=== PATIENT | female | born 1980 | race Caucasian/White ===

== ENCOUNTER 2022-01-25 10:11 | Outpatient (CLI) | payer OTHER, SELFPAY ==
--- NOTE | ~2022-01-25 | MM_ITS ---
EXAMINATION: MM screening simón BI w bradley HISTORY: Screening mammogram TECHNIQUE: Craniocaudal and mediolateral oblique 3-D tomosynthesis images were obtained and synthetic 2-D images were generated. CAD analysis was submitted and interpreted. COMPARISON: 02/11/2015 BREAST PARENCHYMAL COMPOSITION: There are scattered areas of fibroglandular density. FINDINGS: 4.7 x 7.9 mm circumscribed opacity in the posterior upper left breast on MLO view, likely a n axillary tail lymph node. There is no evidence of suspicious mass, calcification, or architectural distortion to suggest malignancy in either breast. There has been no suspicious interval change. IMPRESSION: 1. No mammographic evidence of malignancy. 2. Recommend routine screening mammography in one year. BI-RADS Category 2: Benign finding(s). Reviewed, dictated and finalized at location A.
== END 2022-01-25 10:12 | disposition home or self-care (01) ==
LOC: CHSIMG 10:17
PROVIDERS: PCP Physician Assistant; Visit Provider Physician Assistant
DX: Z12.31 Encounter for screening mammogram for malignant neoplasm of breast (principal)
CPT/HCPCS: 77063; 77067

== ENCOUNTER 2022-03-15 11:31 | Emergency (ER) | payer OTHER, SELFPAY ==
[2022-03-15] VITALS (20 sets, daily range): BP systolic 130–152; BP diastolic 72–116; PULSE 55–81; RESP 14–24; TEMP 36.7–36.9; O2SAT 98–100
--- NOTE | ~2022-03-15 | XR_ITS ---
EXAMINATION: XR chest 2V DATE: 03/15/2022 14:13 INDICATION: 3 days of intermittent chest pain TECHNIQUE: PA and lateral views of the chest were obtained. COMPARISON: Chest radiograph and CT dated 07/19/2009 FINDINGS: The lungs are clear with no focal airspace opacities, pulmonary edema, pleural effusion or pneumothor ax. The cardiomediastinal silhouette is normal. Visualized bones and soft tissues are unremarkable. IMPRESSION: 1. No acute cardiopulmonary disease. Reviewed, dictated and finalized at location A.
--- NOTE | 2022-03-15 11:38 | ECG_ITS ---
Measurements Intervals [place] Rate: 72 P: 65 ME: 150 QRS: 32 QRSD: 85 T: 13 QT: 373 QTc: 409 Interpretive Statements SINUS RHYTHM RSR' IN V1 OR V2, PROBABLY NORMAL VARIANT NONSPECIFIC ST & T-WAVE ABNORMALITY- ANTEROLAT/INF LEADS BORDERLINE ECG NO PREVIOUS ECG AVAILABLE FOR COMPARISON Electronically Signed On 03-15-2022 14:34:08 CDT by Jayson Shields D.O.
--- NOTE | 2022-03-15 13:40 | ED.GENADULT ---
HPI - General Adult General Chief complaint: Unspecified Stated complaint: chest pain, sob Time Seen by Provider: 03/15/22 13:40 Source: patient Mode of arrival: ambulatory Limitations: no limitations History of Present Illness HPI narrative: The patient is a 41-year-old female with a history of anxiety presenting to the emergency department for evaluation of chest pain. Patient states that she was initiated on Wellbutrin last week by her primary care physician to help with smoking cessation and anxiety. Patient states she thought she may be having an adverse reaction to the medication with significant amount of palpitations, chest pain, shortness of breath this morning. Patient reports feeling shaky. Patient denies any current chest pain or shortness of breath. 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 She did experience radiation to the left arm. No radiation to the back, jaw, neck. No associated diaphoresis, lightheadedness, dizziness, syncope. Patient denies cardiac history. She does smoke. She has never had a stress test. She reports recent long air travel to [place] last month. She denies history of coagulopathy. Related Data Home Medications Medication Instructions Recorded Confirmed bupropion HCl 300 mg 24 hr tablet, mg PO 03/15/22 extended release Allergies Allergy/AdvReac Type Severity Reaction Status Date / Time Sulfa (Sulfonamide Allergy Unknown N/V SEVERE Verified 03/15/22 13:36 Antibiotics) Review of Systems Review of Systems: CONSTITUTIONAL: Denies fever, chills, or sweats. CARDIOVASCULAR: Reports intermittent chest pain, resolved palpitations, denies edema RESPIRATORY: Denies cough, denies current shortness of breath GASTROINTESTINAL: Denies abdominal pain, nausea, vomiting, or diarrhea. GENITOURINARY: Denies dysuria or hematuria. SKIN: Denies rash or itching. MUSCULOSKELETAL: Denies back pain, joint pain, or myalgia. NEUROLOGIC: Denies headache, numbness, or weakness. [facility] Past Medical History Medical History (Updated 03/15/22 @ 18:24 by Sue Palomares MD) Anxiety Recurrent urinary tract infection Surgical History Surgical History (Updated 03/15/22 @ 14:27 by Sue Palomares MD) History of hysterectomy Tubal ligation status Social History Social History (Updated 03/15/22 @ 14:28 by Sue Palomares MD) Smoking status: Current every day smoker Alcohol intake: former Substance use: never Living arrangements: with family Gender identity (if verbalized by the patient): Female Exam Narrative: GENERAL: Awake, alert, conversant, mildly anxious appearing HEAD: Normocephalic, atraumatic. EYES: PERRLA and EOMI. ENT: Nares clear, no rhinorrhea or epistaxis. Mucous membranes moist. NECK: Supple. CHEST: No respiratory distress, breathing even and non labored, no chest wall tenderness HEART: Regular rate, sinus rhythm ABDOMEN:Non distended, non tender EXTREMITIES: Normal range of motion. No edema. No unilateral calf tenderness or erythema. SKIN: Warm, dry, no rash. NEURO:No focal deficits. Alert and oriented x3 Course Vital Signs Vital signs: Vital Signs Temperature 36.9 C 03/15/22 11:34 Pulse Rate 81 03/15/22 11:34 Respiratory Rate 16 03/15/22 11:34 Blood Pressure 140/87 03/15/22 11:34 Pulse Oximetry 100 03/15/22 11:34 Oxygen Delivery Room Air 03/15/22 11:34 Temperature 36.7 C 03/15/22 13:40 Pulse Rate 65 03/15/22 18:31 Respiratory Rate 15 03/15/22 18:31 Blood Pressure 141/97 H 03/15/22 18:31 Pulse Oximetry 100 03/15/22 18:31 Oxygen Delivery Room Air 03/15/22 11:34 Medical Decision Making MDM Narrative Medical decision making narrative: Patient's EKG and labs are without significant high risk changes. Cardiac risk factors reviewed. Patient is felt low risk for ACS and reasonable for further risk stratification testing as an outpati
[2022-03-15 14:15] LABS: Basophils Absolute Auto 0.1 K/mm3 (0.0-0.1); Basophils Percent Auto 0.7 % (0.2-1.2); Eosinophils Absolute Auto 0.2 K/mm3 (0-0.3); Eosinophils Percent Auto 2.1 % (0-4.4); Hematocrit 40.5 % (37.0-47.0); Hemoglobin 14.2 g/dL (12.0-15.0); Immature Granulocyte Absolute 0.02 K/mm3 (0.00-0.031); Immature Granulocyte Percent A 0.3 % (0-0.5); Lymphocytes Absolute Auto 2.24 K/mm3 (0.9-3.2); Lymphocytes Percent Auto 31.1 % (18.3-44.2); Mean Corpuscular HGB Conc 35.1 g/dl (32-36); Mean Corpuscular Hemoglobin 30.7 pg (26-34); Mean Corpuscular Volume 87.7 fl (80-100); Mean Platelet Volume 7.9 fl (7.4-10.4); Monocytes Absolute Auto 0.5 K/mm3 (0.1-0.6); Monocytes Percent Auto 6.8 % (2.6-8.5); Neutrophils Absolute Auto 4.3 K/mm3 (1.3-6.7); Platelet Count Result 315 k/mm3 (150-375); Red Blood Count 4.62 M/mm3 (4.2-5.4); Red Cell Distribution Width 13.2 % (11.5-14.5); White Blood Count 7.2 K/mm3 (4.5-10.0)
[2022-03-15 14:35] LABS: Alanine Aminotransferase 16 U/L (6-35); Albumin Level 4.5 g/dL (3.5-5.1); Alkaline Phosphatase 53 U/L (38-126); Anion Gap 10 mmol/L (8-16); Aspartate Amino Transferase 26 U/L (14-36); Bilirubin,Total 0.8 mg/dL (0.2-1.3); Blood Urea Nitrogen 9 mg/dL (7-17); Calcium 9.1 mg/dL (8.4-10.2); Carbon Dioxide 25 mmol/L (22-30); Chloride 103 mmol/L (98-107); Estimated CRCL calculation 73 ml/min; Estimated Glomerular Filt Rate > 60; Glucose 79 mg/dL (65-110); Lipase 60 U/L (23-300); Potassium 3.9 mmol/L (3.4-5.0); Sodium 138 mmol/L (137-145)
[2022-03-15 14:54] LABS: Troponin I < 0.012 ng/mL (0.000-0.034)
[2022-03-15] MEDS: LORazepam (*CRX) 0.5 MG TABLET PO (16:17)
[2022-03-15] MEDS: KETOROLAC 30 MG/ML VIAL (*BKC) (16:17)
[2022-03-15 17:35] LABS: Troponin I < 0.012 ng/mL (0.000-0.034)
== END 2022-03-15 19:10 | disposition home or self-care (01) ==
PROVIDERS: Emergency Provider Emergency Medicine; PCP Physician Assistant
DX: R07.89 Other chest pain (principal); T43.295A Adverse effect of other antidepressants, initial encounter; F41.9 Anxiety disorder, unspecified; Z87.440 Personal history of urinary (tract) infections; Z90.710 Acquired absence of both cervix and uterus; R94.31 Abnormal electrocardiogram [ECG] [EKG]
CPT/HCPCS: 36415; 71046; 80053; 83690; 84484; 85025; 93005; 96374; 99284; A9270; J1885

== ENCOUNTER 2022-03-21 10:24 | Outpatient (CLI) | payer OTHER, SELFPAY ==
--- NOTE | ~2022-03-21 | US_ITS ---
EXAMINATION: US pelvic complete w TV DATE: 03/21/2022 11:07 INDICATION: History of left ovarian cysts. History of cervical cancer. Comparison:MRI of the pelvis dated 02/08/2015 TECHNIQUE: Multiple transabdominal and endovaginal sonographic images of the pelvis performed. FINDINGS: The uterus is surgically absent. The right ovary measures 3.4 x 3.5 x 2.6 cm and the left ovary measures 4.7 x 7.3 x 3.9 cm. There ar e small follicles in each ovary. There is a 2.1 cm right ovarian cyst. There is a left ovarian cyst m easuring up to 3.9 cm. Bilateral ovarian cysts are simple. No significant wall thickening or septatio n. Normal doppler signal in both ovaries. There is no free fluid in the pelvis. There are no abnormal masses seen on either side. IMPRESSION: 1. Simple bilateral ovarian cysts, largest in the left ovary measuring 3.9 cm. 2: Status post hysterectomy. Reviewed, dictated and finalized at location A.
== END 2022-03-21 10:25 | disposition home or self-care (01) ==
LOC: CHSIMG 10:27
PROVIDERS: PCP Physician Assistant; Visit Provider Physician Assistant
DX: N83.202 Unspecified ovarian cyst, left side (principal)
CPT/HCPCS: 76830; 76856

== ENCOUNTER 2022-05-01 10:33 | Outpatient (CLI) | payer OTHER, SELFPAY ==
--- NOTE | ~2022-05-01 | CT_ITS ---
EXAMINATION: CT abdomen pelvis w con DATE: 05/01/2022 11:36 INDICATION: Abdominal pressure and bloating. Nausea, vomiting, diarrhea, constipation. Abdominal pres sure just to the right of the umbilical area for one to 2 years, with occasional outpouching/bloating . TECHNIQUE: Computed tomography (CT) of the abdomen and pelvis was performed with 100 CC Omnipaque 350 intravenous contrast. Automated exposure control and iterative reconstruction technique were employe d. Exam dose: 255.76 mGy-cm total exam DLP. COMPARISON: 07/17/2009 CT abdomen pelvis FINDINGS: The lung bases are clear. Normal heart size. No pericardial or pleural effusion. The liver, gallbladder, bile ducts, spleen, pancreas, pancreatic duct, and adrenal glands are unremar kable. 8 mm and 4 mm right renal cysts. 9 mm and 10.5 mm and 5.7 mm left renal cysts. No suspicious renal sp marcy-occupying mass lesion. No urinary tract calculus or hydroureteronephrosis. The urinary bladder ap pears normal. Status post hysterectomy. .The no bowel obstruction, bowel wall thickening, pneumatosis or intraperitoneal free air is detected . Minimal free fluid in the right dependent pelvis.. Very slight fat-containing umbilical hernia. No other ventral abdominal wall hernia No suspicious osteolytic or osteoblastic lesions. IMPRESSION: Bilateral renal cysts Status post hysterectomy Reviewed, dictated and finalized at Location A. Reviewed, dictated and finalized at location A.
== END 2022-05-01 10:34 | disposition home or self-care (01) ==
LOC: CHSIMG 10:36
PROVIDERS: PCP Physician Assistant; Visit Provider Registered Nurse
DX: R10.9 Unspecified abdominal pain (principal)
CPT/HCPCS: 74177; Q9967

== ENCOUNTER 2022-05-08 09:56 | Outpatient (CLI) | payer OTHER, SELFPAY ==
--- NOTE | ~2022-05-08 | US_ITS ---
EXAMINATION: US pelvic complete w TV DATE: 05/08/2022 10:38 INDICATION: cyst of left ovary TECHNIQUE: Multiple transabdominal and endovaginal sonographic images of the pelvis were obtained. COMPARISON: 03/21/2022, CT abdomen and pelvis 05/01/2022 FINDINGS: Uterus: Surgically absent. Right Ovary: 2.0 x 1.9 x 1.8 cm. Vascular flow is present. 11 mm slightly lobulated hypoechoic ovaria n lesion, with minimal reticular internal echogenicities, likely representing a resolving cyst. Left Ovary: 3.8 x 3.1 x 7.1 cm. Vascular flow is present. Multiple cysts present, the largest measure s 4.1 x 4.2 x 2.8 cm. There is no free fluid in the pelvis. IMPRESSION: Multiple simple left ovarian cysts, the largest measures up to 4.1 cm. Resolving right ovarian cyst. Status post hysterectomy. Reviewed, dictated and finalized at location K. IDENTIAL SECRETARY IMPRESSION: Multiple simple left ovarian cysts, the largest measures up to 4.1 cm. Resolvin g right ovarian cyst. Status post hysterectomy.
--- NOTE | ~2022-05-08 | XR_ITS ---
EXAM: XR_[id number]_CR DATE: 05/08/2022 10:46 HISTORY: neck pain NKI neck pain x 5 yrs no surgeries pain down lt . COMPARISON: None available. FINDINGS: Craniocervical association and atlantoaxial joint are aligned. No prevertebral soft tissue swelling. 2 mm anterolisthesis at C4-5. 2 mm retrolisthesis at C5-6. Vertebral body heights are main tained. Moderate disc space narrowing, uncovertebral joint hypertrophy, and marginal osteophytosis at C5-6 and C6-7. Mild multilevel facet sclerosis and hypertrophy. IMPRESSION: Grade 1 listheses at C4-5 and C5-6. Moderate degenerative disc disease at C5-6 and C6-7. Multilevel facet arthropathy. Reviewed, dictated and finalized at location K. ERCIAL TECHNICIAN IMPRESSION: Grade 1 listheses at C4-5 and C5-6. Moderate degenerative disc dise ase at C5-6 and C6-7. Multilevel facet arthropathy.
== END 2022-05-08 09:57 | disposition home or self-care (01) ==
LOC: CHSIMG 09:58
PROVIDERS: PCP Physician Assistant; Visit Provider Physician Assistant
DX: M54.2 Cervicalgia (principal); N83.202 Unspecified ovarian cyst, left side
CPT/HCPCS: 72040; 76830; 76856

== ENCOUNTER 2022-05-23 09:14 | Outpatient (CLI) | payer OTHER, SELFPAY ==
--- NOTE | ~2022-05-23 | US_ITS ---
US abdomen limited INDICATION: Right upper quadrant pain and nausea PROCEDURE: Realtime right upper abdominal ultrasound. COMPARISON: No prior studies for comparison. FINDINGS: The pancreas is normal without focal mass or pancreatic ductal dilation. Liver echotexture is normal without focal mass or intrahepatic biliary dilatation. There is normal directional flow i n the portal vein. The gallbladder is normal without stones, gallbladder wall thickening or pericholecystic fluid. Comm on bile duct measures 2 mm. No sonographic Ballard's sign. IMPRESSION: 1: Normal limited abdominal ultrasound. Reviewed, dictated and finalized at location B. ATTACHER
== END 2022-05-23 09:15 | disposition home or self-care (01) ==
LOC: CHSIMG 09:16
PROVIDERS: PCP Physician Assistant
DX: R10.11 Right upper quadrant pain (principal)
CPT/HCPCS: 76705

== ENCOUNTER 2022-10-11 10:19 | Outpatient (CLI) | payer OTHER, SELFPAY ==
--- NOTE | ~2022-10-11 | US_ITS ---
EXAMINATION: US pelvic complete w TV DATE: 10/11/2022 11:00 INDICATION: Left ovarian cyst Comparison:Ultrasound dated 05/08/2022 TECHNIQUE: Multiple transabdominal and endovaginal sonographic images of the pelvis performed. FINDINGS: The uterus is surgically absent. The right ovary measures 2 x 1.6 x 1.7 cm and the left ova ry measures 3.5 x 2.9 x 2.6 cm. There are multiple cysts, largest measuring 3.5 cm.. Normal doppler s ignal in both ovaries. There is no free fluid in the pelvis. There are no abnormal masses seen on either side. IMPRESSION: 1. Left ovarian cysts, largest measuring 3.5 cm. Reviewed, dictated and finalized at location B.
== END 2022-10-11 10:20 | disposition home or self-care (01) ==
LOC: CHSIMG 10:20
PROVIDERS: PCP Physician Assistant; Visit Provider Physician Assistant
DX: N83.202 Unspecified ovarian cyst, left side (principal)
CPT/HCPCS: 76830; 76856